=== PATIENT | female | born 1980 ===

== ENCOUNTER 2018-12-03 11:23 | Outpatient (CLI) | payer OTHER ==
[~2018-12-03] VITALS: Ht 160 cm; Wt 63.5 kg
== END 2018-12-03 11:40 | disposition home or self-care (01) ==
LOC: OFIC 805 11:23
DX: H93.11 Tinnitus, right ear (principal); H61.21 Impacted cerumen, right ear

== ENCOUNTER 2024-07-26 13:21 | Day surgery (SDC) | payer OTHER ==
[~2024-07-26 13:21] MED LIST: ALTACE PO
[2024-07-26] MEDS ORDERED: CEFOXITIN SODIUM 2,000 MG VIAL IV ONE ×2 (19:56→20:45)
[2024-07-26] MEDS ORDERED: POVIDONE-IODINE 118 ML BOTT TOP ONE ×2 (20:00→20:45)
== END 2024-07-27 03:30 | disposition home or self-care (01) ==
LOC: CIR.AMB 13:21
PROVIDERS: ATTEND Obstetrics & Gynecology Maternal & Fetal Medicine
DX: O02.1 Missed abortion (principal); Z88.2 Allergy status to sulfonamides; I10 Essential (primary) hypertension